=== PATIENT | male | born 1995 | race Caucasian/White ===

== ENCOUNTER 2018-01-07 09:20 | Emergency (ER) | payer BC ==
--- NOTE | 2018-01-07 09:34 | EDPHY ---
H & P Stated Complaint: l lower abd and l flank pain for 1 week Time Seen by Provider: 01/07/18 09:27 HPI/ROS: CHIEF COMPLAINT: Left flank pain HISTORY OF PRESENT ILLNESS: 22-year-old male presents with left flank pain. Onset of left flank pain 1 week ago. The pain waxes and wanes and ranges from mild to severe pain. The pain is mild now. The pain increases with movement. No associated symptoms. Seen by provider, microscopic hematuria present. Plan for outpt CT, but unable to schedule CT yet. No prior history of kidney stones. No FH kidney stones. REVIEW OF SYSTEMS: complete 10 point ROS negative except at noted in the HPI - Personal History Current Tetanus Diphtheria and Acellular Pertussis (TDAP): No - Medical/Surgical History Hx Asthma: No Hx Chronic Respiratory Disease: No Hx Diabetes: No Hx Cardiac Disease: No Hx Renal Disease: No Hx Cirrhosis: No Hx Alcoholism: No Hx HIV/AIDS: No Hx Splenectomy or Spleen Trauma: No Other PMH: panic/anxiety - Family History Significant Family History: Other (microscopic hematuria) - Social History Smoking Status: Never smoked Alcohol Use: Sober - Physical Exam Exam: General Appearance: Alert, pleasant Eyes: Pupils equal and round, no conjunctival pallor or injection ENT, Mouth: Mucous membranes moist Neck: Normal inspection Respiratory: Lungs are clear to auscultation Cardiovascular: Regular rate and rhythm Gastrointestinal: Abdomen is soft and nontender Back: No CVA tenderness Neurological: A&O, nonfocal, normal gait Skin: Warm and dry Extremities: Normal inspection Psychiatric: Mood and affect normal Constitutional: Initial Vital Signs Temperature (C) 36.7 C 01/07/18 09:23 Heart Rate 105 H 01/07/18 09:23 Respiratory Rate 18 01/07/18 09:23 Blood Pressure 138/95 H 01/07/18 09:23 O2 Sat (%) 99 01/07/18 09:23 O2 Delivery Mode Room Air Allergies/Adverse Reactions: No Known Allergies Allergy (Unverified 01/07/18 09:22) Home Medications: Medication Instructions Recorded Flomax 01/07/18 Medical Decision Making - Diagnostics Imaging Results: Abdomen/Pelvis CT 01/07/18 09:31 Impression: Normal CT of the abdomen and pelvis without IV contrast. Specifically no evidence of renal or ureteral calculi. Findings were communicated by telephone with Dr. 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 Declines pain meds. CT abd/pelvis ordered and reveals no evidence of ureteral calculus. Abd exam remains benign. Likely musculoskeletal etiology of pain. Ibuprofen instructions given. f/u PCP re hematuria Differential Diagnosis: includes though not limited to renal colic, pyelo, musculoskeletal - Data Points Laboratory Results: Laboratory Results 01/07/18 09:30 01/07/18 09:30 Medications Given: Discontinued Medications Ketorolac Tromethamine (Toradol) 15 mg IVP EDNOW ONE Stop: 01/07/18 10:17 Last Admin: 01/07/18 10:20 Dose: 15 mg Departure - Departure Disposition: Home, Routine, Self-Care Clinical Impression: Left flank pain Hematuria Qualifiers: Hematuria type: unspecified type Qualified Code(s): R31.9 - Hematuria, unspecified Condition: Good Instructions: Hematuria (ED), Flank Pain (ED) Additional Instructions: Ibuprofen 600 mg 3 times daily while the pain persists. Return for worsening symptoms or any concerns. Referrals: Sherron Colindres MD [[facility] Primary Care Provider] - As per Instructions
[2018-01-07 09:40] LABS: PLATELET COUNT 260 10^3/uL (150-400)
[2018-01-07] MEDS ORDERED: KETOROLAC 15 MG/1 ML SDV IVP ONE (10:16)
[2018-01-07 10:21] VITALS: BP 122/75
== END 2018-01-07 10:25 | disposition home or self-care (01) ==
DX: R10.9 Unspecified abdominal pain (principal); R31.9 Hematuria, unspecified
CPT/HCPCS: 96374; J1885